=== PATIENT | female | born 1995 | race Hispanic/Latino ===

== ENCOUNTER 2018-03-06 05:30 | Day surgery (SDC) | payer MEDICAID ==
[2018-03-05 13:29] LABS: BASOPHILS % (AUTO) 0.5 % (0.0-5.0); EOSINOPHILS % (AUTO) 1.5 % (0.0-8.0); HEMATOCRIT 34.9 % (36-48); LYMPHOCYTES % (AUTO) 19.6 % (21.0-51.0); MEAN CORPUSCULAR HEMOGLOBIN 30.8 pg (27.0-33.0); MEAN CORPUSCULAR HGB CONC 34.1 g/dL (32.0-36.0); MEAN CORPUSCULAR VOLUME 90.2 fL (80-100); NEUTROPHILS % (AUTO) 68.4 % (40.0-77.0); PLATELET COUNT (AUTO) 367 K/uL (130-400); RED BLOOD CELL COUNT(AUTO) 3.87 MIL/uL (4.00-5.50); RED CELL DISTRIBUTION WIDTH 13.1 % (11.0-15.5)
[2018-03-05 13:39] VITALS: BP 124/62
[~2018-03-06] VITALS: Ht 160 cm; Wt 51.6 kg
[2018-03-06] MEDS ORDERED: LACTATED RINGERS 1000ML 1,000 ML IV ONE (05:32)
[2018-03-06 05:48] VITALS: BP 138/78
[2018-03-06] MEDS ORDERED: ONDANSETRON HCL 4 MG/2 ML VIAL ONE (06:27)
[2018-03-06] MEDS ORDERED: MIDAZOLAM HCL 1 MG/ML 2ML VIAL ONE (06:27)
[2018-03-06] MEDS ORDERED: PROPOFOL 10 MG/ML 20ML VIAL IV ONE ×2 (06:30)
[2018-03-06] MEDS ORDERED: LIDOCAINE PF 2% 5ML ABBOJECT ONE (06:30)
[2018-03-06] MEDS ORDERED: FENTANYL CITRATE PF 50 MCG/1 ML 2ML VIAL ONE (06:31)
[2018-03-06] MEDS ORDERED: OXYTOCIN 10 USP UNITS/ML ONE ×2 (06:31→07:02)
[2018-03-06 08:00] VITALS: BP 117/72
[2018-03-06 08:15] VITALS: BP 113/71
[2018-03-06 08:30] VITALS: BP 116/63
== END 2018-03-06 08:46 | disposition home or self-care (01) ==
LOC: DAH 05:30
PROVIDERS: ATTEND Obstetrics & Gynecology
DX: O02.1 Missed abortion (principal)
CPT/HCPCS: 36415; 59820; 85025; 86156; 86850; 86870; 86900; 86901; 88305; A4606; J2001; J2250; J2405; J2590 ×2; J2704 ×2; J3010; J7120 ×2